=== PATIENT | male | born 1940 | race Caucasian/White ===

== ENCOUNTER 2017-11-04 16:26 | Observation (INO) | payer MEDICARE, SELFPAY ==
[2017-11-04] VITALS (8 sets, daily range): BP systolic 124–206; BP diastolic 62–77; PULSE 68–94; RESP 15–22; TEMP 36.7–37.2; O2SAT 91–98; BMI 33.7; BMI 36.2; BMI 36.3
--- NOTE | 2017-11-04 16:42 | EKG12_ITS ---
Test Reason : COUGH Blood Pressure : / mmHG Vent. Rate : 093 BPM Atrial Rate : 093 BPM P-R Int : 156 ms QRS Dur : 124 ms QT Int : 378 ms P-R-T Axes : 047 -26 100 degrees QTc Int : 469 ms Normal sinus rhythm Left ventricular hypertrophy with QRS widening and repolarization abnormality Abnormal ECG Confirmed by ANU WINSTON, ABDULAZIZ ([id number]), magazine editor MAEVE SHAY ([id number]) on 11/08/2017 2:51:27 PM Referred By: ASHLEY Confirmed By:ABDULAZIZ BRENNAN MD
--- NOTE | 2017-11-04 16:45 | RAD_ITS ---
STUDY: X-RAY CHEST REASON FOR EXAM: Male, 77 years old. Cough for 3 months TECHNIQUE: AP portable COMPARISON: October 14, 2016 FINDINGS: There are bilateral perihilar interstitial infiltrates or pulmonary edema.. There is no demonstrated pleural abnormality. Heart is enlarged.. Normal mediastinum and sarath. Normal visualized pulmonary arteries. Mildly calcified aortic arch and descending thoracic aorta. Normal visualized thoracic spine. Normal visualized ribs, clavicles, and shoulders. There is no demonstrated abnormality of the visualized soft tissue structures of the upper abdomen. RAD/Chest 1 View (Portable) IMPRESSION: Probable congestive failure. Cannot exclude inflammatory disease. Electronically Signed: Corky Rosen MD at 17:49 EDT , Service support ,
--- NOTE | 2017-11-04 16:59 | ED.DCSUM_ITS ---
- ER Visit Summary Date of Service: 11/04/17 Chief Complaint: [] 3 month history of cough end-stage renal disease dialysis Wednesday History of Present Illness: Very poor historian, the patient is a 77 M [] history of end-stage renal disease on dialysis Wednesday cycle completed normal dialysis session 4 hours on Wednesday he has had a 3 month history of a dry nonproductive cough, he is on home O2 as needed as needed 2 L he has been using her last few months. He indicates his weight has not changed , he has had no fever no obvious rhinorrhea he is eating and drink without difficulty, he makes about a cupful of urine a day that has not changed his bowel habits have been normal he has no history of SC PE or DVT that he can recall Indicates he has not seen any of his physicians for the cough he has not notified the dialysis staff that he has been coughing he cannot really explain why he came to the emergency department today given his symptoms have been gone for 3 months he is a very poor historian Physical Examination: [] A dry cough here in the emergency department he speaking full sentences his vital signs are within normal range his HEENT exam is unremarkable the neck is supple the lungs are diminished heart tones are distant the abdomen obese but soft nontender he has chronic 3+ edema to his lower extremities neurologically is awake alert moving all 4 extremities Test Results: [] Emergency Department Course and Treatment: [] Chest x-ray shows signs of congestive failure of the EKG shows nonspecific changes nothing acute screening labs are obtained, his white count 14 and the raining labs are unremarkable see those reports is managed with IV Lasix he has had these symptoms for 3 months there is no definitive finding to suggest pneumonia he indicates he is not gaining weight recently has been having his dialysis but his symptoms being on 4 months there is findings to suggest congestive failure given all the above and the fact he will require more definitive management symptoms for 3 months and his age I have asked the hospital seen for further management he was given IV Lasix Treatment Plan: [] Disposition: [] Admit stable Impression: [] Dyspnea, congestive heart failure, new onset, history of end- stage renal disease This note was generated with Viewpoint Digital[employer] software. It may contain incorrect words, spelling, and punctuation that were not noted in review of the chart prior to signing ED Disposition - Plan for ED Patient: Chief Complaint: Cough Referrals: Nolan Martinez MD [Primary Care Provider] -
[2017-11-04 17:18] LABS: Absolute Lymphocyte Count 1.14 X10^3/ul (0.83-4.51); Absolute Neutrophil Count 10.2 X10^3/uL (2.0-7.7); Basophil# 0.06 X10^3/uL; Basophil% 0.4 % (0-1); Eosinophil# 1.62 X10^3/uL; Eosinophils% 11.7 % (0-5); Hematocrit 28.2 % (40-54); Hemoglobin 8.6 g/dl (13.0-16.5); Lymphocyte # 1.14 X10^3/ul (4.0); Lymphocyte % 8.2 % (19-41); Mean Corp Hgb Conc 30.5 g/gl (32-36); Mean Corpuscular Hgb 26.2 pg (27.0-32.0); Mean Platelet Vol. 8.7 fl (6.2-12.0); Monocyte# 0.78 X10^3/uL; Monocyte% 5.6 % (0-10); Neutrophil # 10.23 X10^3/uL (2.7-7.7); Neutrophil % 73.9 % (47-70); Platelet Count 277 K/mm3 (150-450); RBC Distribution Width CV 14.3 % (11.6-14.6); RBC Distribution Width SD 45.1 fl (35.1-43.9); Red Blood Count 3.28 M/mm3 (4.6-6.2); White Blood Count 13.9 K/mm3 (4.4-11.0)
[2017-11-04] MEDS: Ipratropium/Albuterol Sulfate 3 ML AMPUL.NEB INHALATION (17:22)
[2017-11-04 17:46] LABS: BNP,B-Type NATRIURETIC PEPTIDE 583.2 pg/mL (0-100)
[2017-11-04 17:52] LABS: POSITIVE COUNT NO; POSITIVE DIFFERENTIAL NO; POSITIVE MORPHOLOGY NO
[2017-11-04 17:54] LABS: Anion Gap 9 (5-15); BUN 46 mg/dL (7-18); BUN/Creat Ratio 7.5 RATIO (10-20); Calcium,Total 8.7 mg/dL (8.5-10.1); Chloride 95 mmol/L (98-107); Creatinine, Serum 6.13 mg/dL (0.70-1.30); EST Glomerular Filtration Rate 10 mL/min (>60); Est Glom Filt Rate - Afr Amer 11 mL/min (>60); Estimated Creatinine Clearance 10.25 ml/min; Glucose 252 mg/dL (74-106); Potassium 4.6 mmol/L (3.5-5.1); Sodium Level 134 mmol/L (136-145)
[2017-11-04] MEDS: Furosemide 40 MG/4 ML Vial IV (18:35)
--- NOTE | 2017-11-04 20:11 | ECHOD_ITS ---
Reason For Study: CHF Procedure This was a 2D Doppler, Color Flow transthoracic echocardiogram. The exam was of fair technical quality due to body habitus. Exam performed portable in patient room. Left Ventricle Normal LV size. Moderate concentric left ventricular hypertrophy. Left ventricular systolic function is normal. The estimated ejection fraction is 65 %. Transmitral diastolic flow velocities suggest moderate (stage 2) diastolic dysfunction (pseudonormal pattern). No regional wall motion abnormalities noted. Right Ventricle Normal RV size. Normal systolic function. Atria The left atrium is mildly enlarged. Normal right atrium. No doppler evidence for ASD. Mitral Valve There is no mitral annular calcification. Normal mitral valve. Mild (1+) mitral valve insufficiency. Tricuspid Valve Normal tricuspid valve. Mild tricuspid valve insufficiency. Right ventricular systolic pressure estimated to be 48 mmHg. Aortic Valve Trisinus/trileaflet aortic valve. Normal aortic valve. Pulmonic Valve The pulmonic valve is not well visualized. Trivial pulmonic valve insufficiency. Great Vessels Normal sized aortic root. Pericardium/Pleural No pericardial effusion. MMode/2D Measurements & Calculations LVIDd: 5.0 cm IVSd: 1.5 cm Ao root diam: 2.9 cm LVIDs: 3.3 cm LVPWd: 1.5 cm LA dimension: 5.5 cm RVDd: 3.0 cm FS: 33.7 % LAV(MOD-bp): 62.2 ml LA A4 area: 20.6 cm2 RA A4 area: 18.3 cm2 LAV(MOD-bp) Indexed: 27.0 ml/m2 LAV(MOD-sp2): 59.4 ml LAV(MOD-sp4): 59.1 ml Time Measurements MV dec time: 0.10 sec Doppler Measurements & Calculations MV E max cb: 138.8 cm/sec Lat Peak E' Cb: 7.9 cm/sec Med Peak E' Cb: 7.6 cm/sec MV A max cb: 105.4 cm/sec E/E' lat: 17.5 E/E' med: 18.4 MV E/A: 1.3 MV V2 max: 143.4 cm/sec MV P1/2t max cb: 141.9 cm/sec Ao V2 max: 191.3 cm/sec MV max P.2 mmHg MV P1/2t: 81.1 msec Ao max P.6 mmHg MV V2 mean: 92.3 cm/sec MV dec slope: 512.5 cm/sec2 Ao V2 mean: 143.4 cm/sec MV mean P.7 mmHg MVA(P1/2t): 2.7 cm2 Ao mean P.9 mmHg MV V2 VTI: 36.5 cm Ao V2 VTI: 42.8 cm LV V1 max: 136.1 cm/sec PA V2 max: 159.2 cm/sec TR max cb: 335.6 cm/sec LV V1 max P.4 mmHg TR max P.1 mmHg Interpretation Summary Left ventricular systolic function is normal. The estimated ejection fraction is 65 %. Moderate concentric left ventricular hypertrophy. The left atrium is mildly enlarged. Mild (1+) mitral valve insufficiency. Mild tricuspid valve insufficiency. Trivial pulmonic valve insufficiency. Right ventricular systolic pressure estimated to be 48 mmHg. Transmitral diastolic flow velocities suggest diastolic dysfunction. Ordering Physician: Mara Mckay Referring Physician: Nolan Martinez Performed By: Jessie Duarte RDCS, RVT
--- NOTE | 2017-11-04 20:13 | PCM.HP.STD ---
Problem List (1) Diabetic neuropathy Status: Chronic (2) Secondary hyperparathyroidism Status: Chronic (3) Peripheral vascular disease Status: Chronic (4) Acute on chronic renal failure Status: Chronic (5) Hyperlipidemia Status: Chronic (6) Hypertension Status: Chronic History of Present Illness Date of Admission: 11/04/17 Chief Complaint: Cough for 3 months duration. The patient is a 77 year old M with past medical history of diabetes with neuropathy, diastolic heart failure, end-stage renal disease on hemodialysis, medical noncompliance, presented to the emergency room due non productive cough for about 3 months which is getting worse. He is demanding answers for his cough. He denies any fever, chills, hemoptysis, nausea vomiting or diarrhea. His chest x-ray in the emergency room revealed probable congestive failure. Past Medical History Past Medical History (Chronic Problems): Chronic Problems Diabetic neuropathy (Chronic) Secondary hyperparathyroidism (Chronic) Non-healing wound of lower extremity (Chronic) Peripheral vascular disease (Chronic) Acute on chronic renal failure (Chronic) Hyperlipidemia (Chronic) Hypertension (Chronic) Type 2 diabetes mellitus (Chronic) Cerebral venous sinus thrombosis (Chronic) Questionable history, possible stent in my head CKD (chronic kidney disease) stage 4, GFR 15-29 ml/min (Chronic) Anemia in chronic kidney disease (Chronic) Noncompliance with treatment plan (Chronic) Personality disorder (Chronic) Allergies labetalol [Labetalol] Adverse Reaction (Verified 03/31/17 14:09) Other Home Medications: Ambulatory Orders Medication Instructions Recorded Amlodipine [Norvasc] 10 mg PO DAILY 11/04/17 Aspirin [Aspirin, Baby] 81 mg PO QHS 11/04/17 Collagenase [Santyl] 1 applicatio TOPICAL QODAY 11/04/17 Furosemide [Lasix] 80 mg PO BID 11/04/17 Insulin Lispro [Humalog KwikPen] 15 unit SQ 4X/DAY 11/04/17 Metolazone [Zaroxolyn] 10 mg PO BID 11/04/17 Omeprazole [Omeprazole] 20 mg PO DAILY 11/04/17 Pregabalin [Lyrica] 50 mg PO BID 11/04/17 Surgical History: appendectomy, cholecystectomy Psychiatric History: No pertinent psych hx Smoking Status: Former smoker - *Family History Maternal History Items: Diabetes, No pertinent history Paternal History Items: No pertinent history Review of Systems Constitutional: Reports: Chills, Fever Comment: All Systems were reviewed with pertinent positives mentioned in the HPI above. VTE Information - Inpt Only VTE Present on Admission: No VTE Mechan Device Prophylaxis: SCD's VTE Pharm Prophylaxis ordered?: No - Physical Exam General: Alert, Oriented x3 HEENT: Atraumatic Oral: Moist Mucosa Neck: Supple, No JVD Lungs: Clear to auscultation, No wheeze, No rales Cardiovascular: Regular rate, Normal S1, Normal S2 Abdomen: Bowel Sounds Present, Soft, Non Tender Extremities: No clubbing Neurological: Cranial nerves II-XII grossly intact Psych/Mental Status: Normal Affect Vital Signs Temp Pulse Resp BP Pulse Ox 98.1 F 92 20 H 182/76 H 95 11/04/17 19:35 11/04/17 19:44 11/04/17 19:35 11/04/17 19:35 11/04/17 19:35 Oxygen Flow Rate (L/min) 2 Oxygen Delivery Method Nasal Cannula Weight: 114.6 kg Body Mass Index (BMI) 36.2 Assessment/Plan 1. Acute on chronic diastolic heart failure; the patient is still oral Lasix and make some urine, transition to IV Lasix. 2. 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 The patient tells me he would refuse dialysis tomorrow. 3. Acute bronchitis; I will place him on p.o. doxycycline and prednisone. He is on bronchodilators. 4. Chronic respiratory failure hypoxia on supplemental oxygen at 2 L/min. 5. DVT prophylaxis with subcutaneous heparin. Code Visit Inpatient E&M: 78100 Init Hosp L2
--- NOTE | 2017-11-04 20:16 | HP.PCM_ITS ---
Problem List (1) Diabetic neuropathy Status: Chronic (2) Secondary hyperparathyroidism Status: Chronic (3) Peripheral vascular disease Status: Chronic (4) Acute on chronic renal failure Status: Chronic (5) Hyperlipidemia Status: Chronic (6) Hypertension Status: Chronic History of Present Illness Date of Admission: 11/04/17 Chief Complaint: Cough for 3 months duration. The patient is a 77 year old M with past medical history of diabetes with neuropathy, diastolic heart failure, end-stage renal disease on hemodialysis, medical noncompliance, presented to the emergency room due non productive cough for about 3 months which is getting worse. He is demanding answers for his cough. He denies any fever, chills, hemoptysis, nausea vomiting or diarrhea. His chest x-ray in the emergency room revealed probable congestive failure. Past Medical History Past Medical History (Chronic Problems): Chronic Problems Diabetic neuropathy (Chronic) Secondary hyperparathyroidism (Chronic) Non-healing wound of lower extremity (Chronic) Peripheral vascular disease (Chronic) Acute on chronic renal failure (Chronic) Hyperlipidemia (Chronic) Hypertension (Chronic) Type 2 diabetes mellitus (Chronic) Cerebral venous sinus thrombosis (Chronic) Questionable history, possible stent in my head CKD (chronic kidney disease) stage 4, GFR 15-29 ml/min (Chronic) Anemia in chronic kidney disease (Chronic) Noncompliance with treatment plan (Chronic) Personality disorder (Chronic) Allergies labetalol [Labetalol] Adverse Reaction (Verified 03/31/17 14:09) Other Home Medications: Ambulatory Orders Medication Instructions Recorded Amlodipine [Norvasc] 10 mg PO DAILY 11/04/17 Aspirin [Aspirin, Baby] 81 mg PO QHS 11/04/17 Collagenase [Santyl] 1 applicatio TOPICAL QODAY 11/04/17 Furosemide [Lasix] 80 mg PO BID 11/04/17 Insulin Lispro [Humalog KwikPen] 15 unit SQ 4X/DAY 11/04/17 Metolazone [Zaroxolyn] 10 mg PO BID 11/04/17 Omeprazole [Omeprazole] 20 mg PO DAILY 11/04/17 Pregabalin [Lyrica] 50 mg PO BID 11/04/17 Surgical History: appendectomy, cholecystectomy Psychiatric History: No pertinent psych hx Smoking Status: Former smoker - *Family History Maternal History Items: Diabetes, No pertinent history Paternal History Items: No pertinent history Review of Systems Constitutional: Reports: Chills, Fever Comment: All Systems were reviewed with pertinent positives mentioned in the HPI above. VTE Information - Inpt Only VTE Present on Admission: No VTE Mechan Device Prophylaxis: SCD's VTE Pharm Prophylaxis ordered?: No - Physical Exam General: Alert, Oriented x3 HEENT: Atraumatic Oral: Moist Mucosa Neck: Supple, No JVD Lungs: Clear to auscultation, No wheeze, No rales Cardiovascular: Regular rate, Normal S1, Normal S2 Abdomen: Bowel Sounds Present, Soft, Non Tender Extremities: No clubbing Neurological: Cranial nerves II-XII grossly intact Psych/Mental Status: Normal Affect Vital Signs Temp Pulse Resp BP Pulse Ox 98.1 F 92 20 H 182/76 H 95 11/04/17 19:35 11/04/17 19:44 11/04/17 19:35 11/04/17 19:35 11/04/17 19:35 Oxygen Flow Rate (L/min) 2 Oxygen Delivery Method Nasal Cannula Weight: 114.6 kg Body Mass Index (BMI) 36.2 Assessment/Plan 1. Acute on chronic diastolic heart failure; the patient is still oral Lasix and make some urine, transition to IV Lasix. 2. 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 The patient tells me he would refuse dialysis tomorrow. 3. Acute bronchitis; I will place him on p.o. doxycycline and prednisone. He is on bronchodilators. 4. Chronic respiratory failure hypoxia on supplemental oxygen at 2 L/min. 5. DVT prophylaxis with subcutaneous heparin. Code Visit Inpatient E&M: 11967 Init Hosp L2
[2017-11-04] MEDS: Aspirin 81 MG TAB.CHEW PO (22:21)
[2017-11-04] MEDS: Doxycycline 100 MG CAPSULE PO (22:21)
[2017-11-04] MEDS: Pregabalin 50 MG Capsule PO (22:21)
[2017-11-04 22:30] LABS: Bedside Glucose 290 mg/dL (70-110)
[2017-11-04] MEDS: guaiFENesin 10 ML UDC (200MG/10ML) PO (22:34)
[2017-11-04 22:52] LABS: Thyroid Stim Hormone (TSH) 1.24 uIU/mL (0.358-3.74)
[2017-11-05] VITALS (12 sets, daily range): BP systolic 159–197; BP diastolic 68–90; PULSE 76–88; RESP 16–20; TEMP 36.8–37; O2SAT 92–97
[2017-11-05] MEDS: amLODIPine 5 MG Tablet PO (00:06)
[2017-11-05] MEDS: Lisinopril 40 MG Tablet PO (00:06)
[2017-11-05] MEDS: guaiFENesin 10 ML UDC (200MG/10ML) PO (06:26)
[2017-11-05 06:55] LABS: Bedside Glucose 273 mg/dL (70-110)
[2017-11-05 07:37] LABS: Absolute Lymphocyte Count 1.02 X10^3/ul (0.83-4.51); Absolute Neutrophil Count 9.3 X10^3/uL (2.0-7.7); Basophil# 0.07 X10^3/uL; Basophil% 0.6 % (0-1); Eosinophil# 1.44 X10^3/uL; Eosinophils% 11.4 % (0-5); Hematocrit 25.6 % (40-54); Hemoglobin 7.9 g/dl (13.0-16.5); Lymphocyte # 1.02 X10^3/ul (4.0); Lymphocyte % 8.1 % (19-41); Mean Corp Hgb Conc 30.9 g/gl (32-36); Mean Corpuscular Hgb 27.1 pg (27.0-32.0); Mean Corpuscular Volume 87.7 fL (80-94); Mean Platelet Vol. 9.2 fl (6.2-12.0); Monocyte# 0.76 X10^3/uL; Neutrophil # 9.32 X10^3/uL (2.7-7.7); Neutrophil % 73.7 % (47-70); Platelet Count 289 K/mm3 (150-450); RBC Distribution Width CV 14.1 % (11.6-14.6); Red Blood Count 2.92 M/mm3 (4.6-6.2); White Blood Count 12.6 K/mm3 (4.4-11.0)
[2017-11-05 07:42] LABS: POSITIVE COUNT NO; POSITIVE DIFFERENTIAL NO; POSITIVE MORPHOLOGY NO
[2017-11-05 07:49] LABS: Anion Gap 10 (5-15); BUN 46 mg/dL (7-18); BUN/Creat Ratio 7.3 RATIO (10-20); Calcium,Total 8.6 mg/dL (8.5-10.1); Chloride 97 mmol/L (98-107); Creatinine, Serum 6.33 mg/dL (0.70-1.30); EST Glomerular Filtration Rate 9 mL/min (>60); Est Glom Filt Rate - Afr Amer 11 mL/min (>60); Estimated Creatinine Clearance 9.93 ml/min; Glucose 268 mg/dL (74-106); Potassium 4.1 mmol/L (3.5-5.1); Sodium Level 136 mmol/L (136-145)
[2017-11-05] MEDS: predniSONE 20 MG Tablet 40 MG PO (08:28)
[2017-11-05] MEDS: Albuterol 2.5 MG/3 ML VIAL.NEB. INHALATION (09:58)
[2017-11-05] MEDS: Doxycycline 100 MG CAPSULE PO ×2 (10:12→21:52)
[2017-11-05] MEDS: Pantoprazole Sodium 20 MG Tablet PO (10:12)
[2017-11-05] MEDS: metOLazone 5 MG Tablet 10 MG PO ×2 (10:13→21:52)
[2017-11-05] MEDS: 0.9% NaCl Peripheral Flush Adult/Peds IV (10:13)
[2017-11-05] MEDS: amLODIPine 10 MG Tablet PO (10:13)
[2017-11-05] MEDS: Furosemide 40 MG/4 ML Vial IV ×2 (10:13→21:52)
[2017-11-05] MEDS: Pregabalin 50 MG Capsule PO ×2 (10:17→21:56)
--- NOTE | 2017-11-05 11:01 | PCM.CONS.R ---
Problem List (1) ESRD (end stage renal disease) on dialysis Status: Chronic Consultation - Renal PCP/ Referring MD: Requesting physician: [] Primary care physician: Nolan Martinez - History of Present Illness History of Present Illness: The patient is a 77 year old M ESRD on MWF ( Patient refuses to have HD session on Wednesday . He just go twice weekly . HD center is [facility] [place] ) Patient presented with progressive SOB . Pt was found to have CHF. Renal team was consulted for HD Feeling slightly better today. On NC 2.5 L ROS: 12 systems review is negative except SOB ] - Allergies Allergies: Allergies labetalol [Labetalol] Adverse Reaction (Verified 03/31/17 14:09) Other - Current Medications Current Medications: Current Medications Albuterol Sulfate (Ventolin Aerosols) 2.5 mg INHALATION Q2H PRN PRN PRN Reason: SOB &/OR WHEEZING Last Admin: 11/05/17 09:58 Dose: 2.5 mg Amlodipine Besylate (Norvasc) 10 mg PO DAILY [facility] Last Admin: 11/05/17 10:13 Dose: 10 mg Aspirin (Aspirin, Baby) 81 mg PO QHS [facility] Last Admin: 11/04/17 22:21 Dose: 81 mg Dextrose (D50w Syringe) 0 gm IV X1 PRN; Protocol PRN Reason: Hypoglycemia Doxycycline Monohydrate (Doxycycline) 100 mg PO BID [facility] Last Admin: 11/05/17 10:12 Dose: 100 mg Furosemide (Lasix) 40 mg IV BID@1000,1800 [facility] Last Admin: 11/05/17 10:13 Dose: 40 mg Glucagon () 1 mg IM .X1 PRN PRN Reason: Hypoglycemia Guaifenesin (Robitussin) 10 ml PO Q4H PRN PRN PRN Reason: COUGH/CONGESTION Last Admin: 11/05/17 06:26 Dose: 10 ml Sodium Chloride () 250 mls @ 15 mls/hr IV .[id number] PRN PRN Reason: SALINE FLUSH Insulin Aspart (Novolog Flexpen (Bkc)) 15 units SC 0800,1200,1700,2200 [facility] Last Admin: 11/05/17 08:28 Dose: 15 units Metolazone (Zaroxolyn) 10 mg PO BIDLX [facility] Last Admin: 11/05/17 10:13 Dose: 10 mg Nutritional Formula (Lactose Free) (Glucerna Shake) 120 ml PO TIDCM [facility] Last Admin: 11/05/17 08:19 Dose: Not Given Pantoprazole Sodium (Protonix) 20 mg PO DAILY [facility] Last Admin: 11/05/17 10:12 Dose: 20 mg Prednisone () 40 mg PO DAILY@0800 [facility] Last Admin: 11/05/17 08:28 Dose: 40 mg Pregabalin (Lyrica) 50 mg PO BID [facility] Last Admin: 11/05/17 10:17 Dose: 50 mg Sodium Chloride () 5 - 30 ml IV UD PRN PRN Reason: SALINE FLUSH Last Admin: 11/05/17 10:13 Dose: 20 ml - Past Medical History Past Medical History (Chronic Problems): Chronic Problems ESRD (end stage renal disease) on dialysis (Chronic) Diabetic neuropathy (Chronic) Secondary hyperparathyroidism (Chronic) Non-healing wound of lower extremity (Chronic) Peripheral vascular disease (Chronic) Acute on chronic renal failure (Chronic) Hyperlipidemia (Chronic) Hypertension (Chronic) Type 2 diabetes mellitus (Chronic) Cerebral venous sinus thrombosis (Chronic) Questionable history, possible stent in my head CKD (chronic kidney disease) stage 4, GFR 15-29 ml/min (Chronic) Anemia in chronic kidney disease (Chronic) Noncompliance with treatment plan (Chronic) Personality disorder (Chronic) - Past Surgical History Surgical History: appendectomy, cholecystectomy - Social History Smoking Status: Former smoker - Family History Maternal History Items: Diabetes, No pertinent history Paternal History Items: No pertinent history - Physical Exam General: Alert, Oriented x3 HEENT: Atraumatic Oral: Moist Mucosa Neck: Supple, No JVD Lungs: Diminished, Rales Cardiovascular: Regular rate, Regular Rhythm, Normal S1, Normal S2 Abdomen: Bowel Sounds Present, Soft, Non Tender Extremities: No clubbing, No edema Skin: No rashes Musculoskeletal: No Tenderness to Palpation of Joints or Extremities Lymphatic: No Cervical, Supraclavicular, or Inguinal Adenopathy Neurological: Cranial nerves II-XII grossly intact Psych/Mental Status: Normal Affect Vital Signs Temp Pulse Resp BP Pulse Ox 98.5 F 83 18 197/68 H 93 11/05/17 10:09 11/05/17 10:50 11/05/17 10:50 11/05/17 10:09 11/05/17 10:09 Oxygen Flow Rate (L/min) 2.5 Oxygen Delivery Method Nasal Cannula Weight: 113 kg Body Mass Index (BMI) 36.2 Intake and Output for Last 24 Hours 11/03/17 11/04/17 11/05/17 23:59 23:59 23:59 Intake Total 222 / 222 Balance 222 / 222 Laboratory Tests Past 24 Hrs 11/04/17 11/04/17 11/05/17 21:45 21:45 00:15 WBC RBC Hgb Hct MCV MCH MCHC RDW RDW Differential Plt Count MPV Immature Gran % (Auto) Neut % (Auto) Lymph % (Auto) [place] % (Auto) Eos % (Auto) Baso % (Auto) Absolute Neuts (auto) Absolute Lymphs (auto) Total Counted Sodium Potassium Chloride Carbon Dioxide Anion Gap BUN Creatinine Estim Creat Clear Calc Est GFR (MDRD) Af Amer Est GFR (MDRD) Non-Af BUN/Creatinine Ratio Glucose Calcium Troponin I < 0.02 0.04 TSH 1.24 11/05/17 11/05/17 11/05/17 07:00 07:00 07:00 WBC 12.6 H RBC 2.92 L Hgb 7.9 L Hct 25.6 L MCV 87.7 MCH 27.1 MCHC 30.9 L RDW 14.1 RDW Differential 43.0 Plt Count 289 MPV 9.2 Immature Gran % (Auto) 0.200 Neut % (Auto) 73.7 H Lymph % (Auto) 8.1 L [place] % (Auto) 6.0 Eos % (Auto) 11.4 H Baso % (Auto) 0.6 Absolute Neuts (auto) 9.3 H Absolute Lymphs (auto) 1.02 Total Counted Not Reportable Sodium 136 Cancelled Potassium 4.1 Cancelled Chloride 97 L Cancelled Carbon Dioxide 29.0 Cancelled Anion Gap 10 Cancelled BUN 46 H Cancelled Creatinine 6.33 H Cancelled Estim Creat Clear Calc 9.93 Cancelled Est GFR (MDRD) Af Amer 11 L Cancelled Est GFR (MDRD) Non-Af 9 L Cancelled BUN/Creatinine Ratio 7.3 L Cancelled Glucose 268 H Cancelled Calcium 8.6 Cancelled Troponin I 0.04 TSH POC Glucose 11/05/17 11/04/17 06:46 22:26 POC Glucose 273 H 290 H Assessment/Plan 1- ESRD on MWF ( Patient refuses 3 days weekly HD . He just has HD session on MF) Will do HD session today with UF goal 3L. HD access LUE AVF with + T and B 2- HTN: BP is elevated. will monitor after HD. if remains high might add hydralazine 3- Acute on chronic RF due to CHF HD today with UF goal 3L Will continue to follow Dominick Whelan MD
--- NOTE | 2017-11-05 11:07 | CON.PCM_ITS ---
Problem List (1) ESRD (end stage renal disease) on dialysis Status: Chronic Consultation - Renal PCP/ Referring MD: Requesting physician: [] Primary care physician: Nolan Martinez - History of Present Illness History of Present Illness: The patient is a 77 year old M ESRD on MWF ( Patient refuses to have HD session on Wednesday . He just go twice weekly . HD center is [facility] ) Patient presented with progressive SOB . Pt was found to have CHF. Renal team was consulted for HD Feeling slightly better today. On NC 2.5 L ROS: 12 systems review is negative except SOB ] - Allergies Allergies: Allergies labetalol [Labetalol] Adverse Reaction (Verified 03/31/17 14:09) Other - Current Medications Current Medications: Current Medications Albuterol Sulfate (Ventolin Aerosols) 2.5 mg INHALATION Q2H PRN PRN PRN Reason: SOB &/OR WHEEZING Last Admin: 11/05/17 09:58 Dose: 2.5 mg Amlodipine Besylate (Norvasc) 10 mg PO DAILY [facility] Last Admin: 11/05/17 10:13 Dose: 10 mg Aspirin (Aspirin, Baby) 81 mg PO QHS [facility] Last Admin: 11/04/17 22:21 Dose: 81 mg Dextrose (D50w Syringe) 0 gm IV X1 PRN; Protocol PRN Reason: Hypoglycemia Doxycycline Monohydrate (Doxycycline) 100 mg PO BID [facility] Last Admin: 11/05/17 10:12 Dose: 100 mg Furosemide (Lasix) 40 mg IV BID@1000,1800 [facility] Last Admin: 11/05/17 10:13 Dose: 40 mg Glucagon () 1 mg IM .X1 PRN PRN Reason: Hypoglycemia Guaifenesin (Robitussin) 10 ml PO Q4H PRN PRN PRN Reason: COUGH/CONGESTION Last Admin: 11/05/17 06:26 Dose: 10 ml Sodium Chloride () 250 mls @ 15 mls/hr IV .[id number] PRN PRN Reason: SALINE FLUSH Insulin Aspart (Novolog Flexpen (Bkc)) 15 units SC 0800,1200,1700,2200 [facility] Last Admin: 11/05/17 08:28 Dose: 15 units Metolazone (Zaroxolyn) 10 mg PO BIDLX [facility] Last Admin: 11/05/17 10:13 Dose: 10 mg Nutritional Formula (Lactose Free) (Glucerna Shake) 120 ml PO TIDCM [facility] Last Admin: 11/05/17 08:19 Dose: Not Given Pantoprazole Sodium (Protonix) 20 mg PO DAILY [facility] Last Admin: 11/05/17 10:12 Dose: 20 mg Prednisone () 40 mg PO DAILY@0800 [facility] Last Admin: 11/05/17 08:28 Dose: 40 mg Pregabalin (Lyrica) 50 mg PO BID [facility] Last Admin: 11/05/17 10:17 Dose: 50 mg Sodium Chloride () 5 - 30 ml IV UD PRN PRN Reason: SALINE FLUSH Last Admin: 11/05/17 10:13 Dose: 20 ml - Past Medical History Past Medical History (Chronic Problems): Chronic Problems ESRD (end stage renal disease) on dialysis (Chronic) Diabetic neuropathy (Chronic) Secondary hyperparathyroidism (Chronic) Non-healing wound of lower extremity (Chronic) Peripheral vascular disease (Chronic) Acute on chronic renal failure (Chronic) Hyperlipidemia (Chronic) Hypertension (Chronic) Type 2 diabetes mellitus (Chronic) Cerebral venous sinus thrombosis (Chronic) Questionable history, possible stent in my head CKD (chronic kidney disease) stage 4, GFR 15-29 ml/min (Chronic) Anemia in chronic kidney disease (Chronic) Noncompliance with treatment plan (Chronic) Personality disorder (Chronic) - Past Surgical History Surgical History: appendectomy, cholecystectomy - Social History Smoking Status: Former smoker - Family History Maternal History Items: Diabetes, No pertinent history Paternal History Items: No pertinent history - Physical Exam General: Alert, Oriented x3 HEENT: Atraumatic Oral: Moist Mucosa Neck: Supple, No JVD Lungs: Diminished, Rales Cardiovascular: Regular rate, Regular Rhythm, Normal S1, Normal S2 Abdomen: Bowel Sounds Present, Soft, Non Tender Extremities: No clubbing, No edema Skin: No rashes Musculoskeletal: No Tenderness to Palpation of Joints or Extremities Lymphatic: No Cervical, Supraclavicular, or Inguinal Adenopathy Neurological: Cranial nerves II-XII grossly intact Psych/Mental Status: Normal Affect Vital Signs Temp Pulse Resp BP Pulse Ox 98.5 F 83 18 197/68 H 93 11/05/17 10:09 11/05/17 10:50 11/05/17 10:50 11/05/17 10:09 11/05/17 10:09 Oxygen Flow Rate (L/min) 2.5 Oxygen Delivery Method Nasal Cannula Weight: 113 kg Body Mass Index (BMI) 36.2 Intake and Output for Last 24 Hours 11/03/17 11/04/17 11/05/17 23:59 23:59 23:59 Intake Total 222 / 222 Balance 222 / 222 Laboratory Tests Past 24 Hrs 11/04/17 11/04/17 11/05/17 21:45 21:45 00:15 WBC RBC Hgb Hct MCV MCH MCHC RDW RDW Differential Plt Count MPV Immature Gran % (Auto) Neut % (Auto) Lymph % (Auto) [place] % (Auto) Eos % (Auto) Baso % (Auto) Absolute Neuts (auto) Absolute Lymphs (auto) Total Counted Sodium Potassium Chloride Carbon Dioxide Anion Gap BUN Creatinine Estim Creat Clear Calc Est GFR (MDRD) Af Amer Est GFR (MDRD) Non-Af BUN/Creatinine Ratio Glucose Calcium Troponin I < 0.02 0.04 TSH 1.24 11/05/17 11/05/17 11/05/17 07:00 07:00 07:00 WBC 12.6 H RBC 2.92 L Hgb 7.9 L Hct 25.6 L MCV 87.7 MCH 27.1 MCHC 30.9 L RDW 14.1 RDW Differential 43.0 Plt Count 289 MPV 9.2 Immature Gran % (Auto) 0.200 Neut % (Auto) 73.7 H Lymph % (Auto) 8.1 L [place] % (Auto) 6.0 Eos % (Auto) 11.4 H Baso % (Auto) 0.6 Absolute Neuts (auto) 9.3 H Absolute Lymphs (auto) 1.02 Total Counted Not Reportable Sodium 136 Cancelled Potassium 4.1 Cancelled Chloride 97 L Cancelled Carbon Dioxide 29.0 Cancelled Anion Gap 10 Cancelled BUN 46 H Cancelled Creatinine 6.33 H Cancelled Estim Creat Clear Calc 9.93 Cancelled Est GFR (MDRD) Af Amer 11 L Cancelled Est GFR (MDRD) Non-Af 9 L Cancelled BUN/Creatinine Ratio 7.3 L Cancelled Glucose 268 H Cancelled Calcium 8.6 Cancelled Troponin I 0.04 TSH POC Glucose 11/05/17 11/04/17 06:46 22:26 POC Glucose 273 H 290 H Assessment/Plan 1- ESRD on MWF ( Patient refuses 3 days weekly HD . He just has HD session on MF ) Will do HD session today with UF goal 3L. HD access LUE AVF with + T and B 2- HTN: BP is elevated. will monitor after HD. if remains high might add hydralazine 3- Acute on chronic RF due to CHF HD today with UF goal 3L Will continue to follow Dominick Whelan MD
--- NOTE | 2017-11-05 11:44 | CASEMGMT ---
JOSE MANUEL reviewed chart and noted from past admission that patient is on Passport. JOSE MANUEL called [facility] and spoke with Lyssa on the coverage line. Patient's Care Manger is Angie Alcazar. He has a medical alert button through [employer], he gets 6 hours of personal care a week through [facility], he also gets 1 hour of prison a week for wound care from [facility], and he gets 7 meals a week from [employer]. Jose C TORRES said patient may be interested in Hospice. He has a relative that is a catastrophe claims supervisor at Hospice and he may talk with her. MELISSA also said patient appears to be having some spiritual struggles as evidenced by his talking about after life and what to expect. SW did call the vascular technician and left him a message. SW will speak with patient about Hospice. Emilie RODRIGUEZ MSW
[2017-11-05] MEDS: Glucerna Shake 120 ML LIQUID PO ×2 (11:47→16:10)
--- NOTE | 2017-11-05 15:23 | PCM.PROGNOTE ---
Subjective: Pt was very agitated this AM, and was very upset, refusing dialysis again. He refused dialysis last night. He does make some urine still. I sat and discussed his prognosis with him if he continued to refuse dialysis, namely with it being very poor, with probably worsening anemia, and possible respiratory failure. He does state that in the event of cardiac arrest he does not want intubated or CPR. The patient refuses to consider dialysis on Wednesdays. He also states that he does not want to do dialysis anymore at all, but that he is scared that there may not be an afterlife, if there is not one, then he wants to live, but if there is as afterlife then he wants to because his life is suffering. He states that he is considering hospice. His daughter in law is a slab conditioner supervisor of the [place] [facility] and he would like to discuss it with her. He also plans to discuss this with his brother. He is estranged from his children otherwise. He is SOB and has conversational dyspnea. After much discussion he agrees to have dialysis today. He does wear 2lpm O2 at home chronically. - Physical Exam General: Alert, Oriented x3, Cooperative HEENT: Atraumatic, PERRLA, EOMI, Normocephalic Neck: Supple, No JVD, Negative Carotid Bruits Lungs: Rales, Wheezes, - - conversational dyspnea Cardiovascular: Regular rate, No murmurs Abdomen: Bowel Sounds Present, Soft, Non Tender Extremities: No edema, Capillary Refill Less than 3 Seconds, Edema - BLE edema 2+ equal Skin: No rashes, No breakdown Musculoskeletal: No Tenderness to Palpation of Joints or Extremities Neurological: Cranial nerves II-XII grossly intact Psych/Mental Status: Agitated, Anxious, Alert and oriented to time, place, person, mood and affect Vital Signs Temp Pulse Resp BP Pulse Ox 98.5 F 86 18 197/68 H 93 11/05/17 10:09 11/05/17 15:03 11/05/17 10:50 11/05/17 10:09 11/05/17 10:09 Oxygen Flow Rate (L/min) 2 Oxygen Delivery Method Nasal Cannula Weight: 113 kg Body Mass Index (BMI) 36.2 Intake and Output for Last 24 Hours 11/03/17 11/04/17 11/05/17 23:59 23:59 23:59 Intake Total 702 / 702 Balance 702 / 702 Laboratory Tests Past 24 Hrs 11/04/17 11/04/17 11/05/17 21:45 21:45 00:15 WBC RBC Hgb Hct MCV MCH MCHC RDW RDW Differential Plt Count MPV Immature Gran % (Auto) Neut % (Auto) Lymph % (Auto) [place] % (Auto) Eos % (Auto) Baso % (Auto) Absolute Neuts (auto) Absolute Lymphs (auto) Total Counted Sodium Potassium Chloride Carbon Dioxide Anion Gap BUN Creatinine Estim Creat Clear Calc Est GFR (MDRD) Af Amer Est GFR (MDRD) Non-Af BUN/Creatinine Ratio Glucose Calcium Troponin I < 0.02 0.04 TSH 1.24 11/05/17 11/05/17 11/05/17 07:00 07:00 07:00 WBC 12.6 H RBC 2.92 L Hgb 7.9 L Hct 25.6 L MCV 87.7 MCH 27.1 MCHC 30.9 L RDW 14.1 RDW Differential 43.0 Plt Count 289 MPV 9.2 Immature Gran % (Auto) 0.200 Neut % (Auto) 73.7 H Lymph % (Auto) 8.1 L [place] % (Auto) 6.0 Eos % (Auto) 11.4 H Baso % (Auto) 0.6 Absolute Neuts (auto) 9.3 H Absolute Lymphs (auto) 1.02 Total Counted Not Reportable Sodium 136 Cancelled Potassium 4.1 Cancelled Chloride 97 L Cancelled Carbon Dioxide 29.0 Cancelled Anion Gap 10 Cancelled BUN 46 H Cancelled Creatinine 6.33 H Cancelled Estim Creat Clear Calc 9.93 Cancelled Est GFR (MDRD) Af Amer 11 L Cancelled Est GFR (MDRD) Non-Af 9 L Cancelled BUN/Creatinine Ratio 7.3 L Cancelled Glucose 268 H Cancelled Calcium 8.6 Cancelled Troponin I 0.04 TSH POC Glucose 11/05/17 11/04/17 06:46 22:26 POC Glucose 273 H 290 H Medical Necessity - Tobacco Use Smoking Status: Former smoker Assessment/Plan 1. Acute diastolic CHF 2/2 skipped dialysis Wednesday - refused again last night. Agreeable to today. Echocardiogram today demonstrated normal LV systolic function, EF 65%, moderate concentric LVH, mild 1+ MVI, RVSP was elevated at 48 mmHg, diastolic dysfunction. CXR shows CHF. Elevated BNP, normal TSH, negative troponin ?4. IV Lasix and xaroxalyn continued as he does still produce urine. 2. Acute Bronchitis - productive cough, continue doxy, robitussin, PO prednisone. Leukocytosis improving. Continue aerosols as needed. 3. ESRD - Dr. Whelan consulted. Pt unwilling to go three times / week. 4. Anemia of chronic disease - trend. Normocytic. 5. Type 2 diabetes mellitus-titrate current insulin therapy. Had a sliding scale today. 6. Hyperlipidemia-statin 7. Chronic hypoxic respiratory failure-at baseline 2 L/min. DVT prophylaxis heparin Discharge planning: PTOT, patient considering hospice at this time. We will also consult the complex care nurse given his complaints this morning. This patient was seen by Jose C Denson PA-C under the supervision of Doctor Higuera. After discussion about his goals of care he will have his CODE STATUS changed to DNR CCA today. See subjective.
--- NOTE | 2017-11-05 16:22 | CHAPLAIN ---
Type of Pastoral Visit _x__ Initial Visit ___ Follow-up Visit ___ On-call Visit ___ General Patient Visit ___ Spiritual Assessment ___ Family Conference ___ Bereavement ___ Rapid Response ___ Code Blue ___ Other (describe below) Pastoral Care Referral From _x__ Patient ___ Family _x__ Nurse ___ Physician _x__ Trimmer Machine ___ Manometer Technician ___ Other (describe below) Sacrament/Intervention _x__ Active listening ___ Anointing ___ Nondenominational ___ Bereavement ___ Communion _x__ Janeth exploration ___ _x__ Life review _x__ Prayer ___ Reconciliation ___ Sacrament of Sick ___ Supportive presence ___ Wedding _x__ Other (describe below) Pastoral Comments call came from on PCU with report patient is considering hospice but has spiritual questions about end of life; met patient; at this time his visitor immediately left the room so the two of you can talk; patient got right to issue about wanting to but concerned about the after life; pt described his belief but wanted to know what this distributed energy systems consultant could tell him about Heaven or Hell and what is the Truth; this became a good dialogue with many questions; pt said that you have given me so much to think about; pt declined prayer support;
[2017-11-05 16:31] LABS: Bedside Glucose 264 mg/dL (70-110)
[2017-11-05 16:41] LABS: Bedside Glucose 371 mg/dL (70-110)
--- NOTE | 2017-11-05 20:55 | DIALYSIS ---
Pt ran 4 hr tx; 3251; 2500 removed; stable/tolerated well. Next tx 11/08/17. [place] removed; hemostasis achieved; DSD applied.
[2017-11-05] MEDS: Aspirin 81 MG TAB.CHEW PO (21:52)
[2017-11-05 22:06] LABS: Bedside Glucose 252 mg/dL (70-110)
[2017-11-06] VITALS (20 sets, daily range): BP systolic 131–195; BP diastolic 64–77; PULSE 67–99; RESP 18–20; TEMP 36.3–37; O2SAT 94–98
[2017-11-06] MEDS: Metoprolol Tartrate 50 MG Tablet PO (03:47)
[2017-11-06] MEDS: hydrALAZINE 20 MG/ML Vial 10 MG IV ×2 (03:48→10:39)
[2017-11-06] MEDS: Heparin Injection (Vial) 5,000 UNIT/ML VIAL 5000 UNIT SC ×3 (04:58→22:43)
[2017-11-06 06:12] LABS: Absolute Lymphocyte Count 0.85 X10^3/ul (0.83-4.51); Absolute Neutrophil Count 14.4 X10^3/uL (2.0-7.7); Basophil# 0.01 X10^3/uL; Basophil% 0.1 % (0-1); Eosinophil# 0.02 X10^3/uL; Eosinophils% 0.1 % (0-5); Hemoglobin 7.8 g/dl (13.0-16.5); Lymphocyte # 0.85 X10^3/ul (4.0); Lymphocyte % 5.3 % (19-41); Mean Corp Hgb Conc 31.2 g/gl (32-36); Mean Corpuscular Hgb 26.4 pg (27.0-32.0); Mean Corpuscular Volume 84.7 fL (80-94); Mean Platelet Vol. 8.6 fl (6.2-12.0); Monocyte# 0.67 X10^3/uL; Monocyte% 4.2 % (0-10); Neutrophil # 14.37 X10^3/uL (2.7-7.7); Neutrophil % 90.1 % (47-70); POSITIVE COUNT NO; POSITIVE DIFFERENTIAL NO; POSITIVE MORPHOLOGY NO; Platelet Count 258 K/mm3 (150-450); RBC Distribution Width CV 14.2 % (11.6-14.6); RBC Distribution Width SD 44.2 fl (35.1-43.9); Red Blood Count 2.95 M/mm3 (4.6-6.2)
[2017-11-06 06:55] LABS: Anion Gap 8 (5-15); BUN 26 mg/dL (7-18); BUN/Creat Ratio 7.3 RATIO (10-20); Chloride 97 mmol/L (98-107); Creatinine, Serum 3.57 mg/dL (0.70-1.30); EST Glomerular Filtration Rate 18 mL/min (>60); Est Glom Filt Rate - Afr Amer 21 mL/min (>60); Estimated Creatinine Clearance 17.61 ml/min; Glucose 297 mg/dL (74-106); Sodium Level 135 mmol/L (136-145)
[2017-11-06 07:05] LABS: Bedside Glucose 319 mg/dL (70-110)
[2017-11-06] MEDS: Doxycycline 100 MG CAPSULE PO ×2 (09:21→22:43)
[2017-11-06] MEDS: predniSONE 20 MG Tablet 40 MG PO (09:21)
[2017-11-06] MEDS: Pantoprazole Sodium 20 MG Tablet PO (09:21)
[2017-11-06] MEDS: Pregabalin 50 MG Capsule PO ×2 (09:21→22:43)
[2017-11-06] MEDS: metOLazone 5 MG Tablet 10 MG PO ×2 (09:21→17:28)
[2017-11-06] MEDS: amLODIPine 10 MG Tablet PO (09:21)
[2017-11-06] MEDS: Collagenase 30gm Tube 1 APPLIC TOPICAL (09:23)
[2017-11-06] MEDS: Furosemide 40 MG/4 ML Vial IV ×2 (09:23→17:29)
--- NOTE | 2017-11-06 09:24 | CASEMGMT ---
Addendum entered by Emilie Medley 11/06/17 10:07: green sheet on chart with instructions. Original Note: SW spoke with RN yesterday who indicated patient is now okay with dialysis and wants to wait to talk to Hospice until he gets his affairs in order. SW noted rn interventional spoke with patient and it looks like he and patient had a good conversation. SW met with patient, introduced self and role at [facility]. Patient confirmed his services with [facility]. He denies need for home PT/OT even though it was recommended by therapy. Patient appeared to be in good spirits today as was evidenced by his making jokes and laughing. At this time SW will defer discussion of Hospice as it appears patient has now had a change of heart. Plan: return home with resumption of [facility] home health services. Emilie PARK
[2017-11-06] MEDS: Glucerna Shake 120 ML LIQUID PO ×3 (09:25→17:28)
[2017-11-06 11:56] LABS: Bedside Glucose 209 mg/dL (70-110)
--- NOTE | 2017-11-06 12:40 | PN_ITS ---
Subjective: Cough improved with robitussin. He continues to be somewhat more SOB than normal. He continues to have a productive cough. No fevers or chills. He overall feels improved since yesterday, he did agree to dialysis yesterday. He states that after having a discussion with his brother he wants to continue to live, and is even willing to start doing dialysis on Wednesdays which he was not doing prior. - Physical Exam General: Alert, Oriented x3, Cooperative HEENT: Atraumatic, PERRLA, EOMI, Normocephalic Neck: Supple, No JVD, Negative Carotid Bruits Lungs: Rales - diffuse mild crackles. Cardiovascular: Regular rate, No murmurs Abdomen: Bowel Sounds Present, Soft, Non Tender Extremities: No edema, Capillary Refill Less than 3 Seconds Skin: No rashes, No breakdown Musculoskeletal: No Tenderness to Palpation of Joints or Extremities Neurological: Cranial nerves II-XII grossly intact Psych/Mental Status: Normal Affect, Appropriate, Alert and oriented to time, place, person, mood and affect Vital Signs Temp Pulse Resp BP Pulse Ox 97.9 F 72 18 162/73 H 97 11/06/17 09:48 11/06/17 11:20 11/06/17 09:48 11/06/17 09:48 11/06/17 11:32 Oxygen Flow Rate (L/min) 2.5 Oxygen Delivery Method Nasal Cannula Weight: 110.9 kg Body Mass Index (BMI) 36.2 Intake and Output for Last 24 Hours 11/04/17 11/05/17 11/06/17 23:59 23:59 23:59 Intake Total 1152 / 1152 Output Total 5000 / 5000 Balance -3848 / -3848 Laboratory Tests Past 24 Hrs 11/06/17 11/06/17 05:50 05:50 WBC 16.0 H RBC 2.95 L Hgb 7.8 L Hct 25.0 L MCV 84.7 MCH 26.4 L MCHC 31.2 L RDW 14.2 RDW Differential 44.2 H Plt Count 258 MPV 8.6 Immature Gran % (Auto) 0.200 Neut % (Auto) 90.1 H Lymph % (Auto) 5.3 L [place] % (Auto) 4.2 Eos % (Auto) 0.1 Baso % (Auto) 0.1 Absolute Neuts (auto) 14.4 H Absolute Lymphs (auto) 0.85 Total Counted Not Reportable Sodium 135 L Potassium 4.0 Chloride 97 L Carbon Dioxide 30.0 Anion Gap 8 BUN 26 H Creatinine 3.57 H Estim Creat Clear Calc 17.61 Est GFR (MDRD) Af Amer 21 L Est GFR (MDRD) Non-Af 18 L BUN/Creatinine Ratio 7.3 L Glucose 297 H Calcium 8.0 L POC Glucose 11/06/17 11/06/17 11/05/17 11:51 06:51 21:46 POC Glucose 209 H 319 H 252 H 11/05/17 11/05/17 16:12 11:41 POC Glucose 371 H 264 H Medical Necessity - Tobacco Use Smoking Status: Former smoker Assessment/Plan 1. Acute diastolic CHF 2/2 skipped dialysis - s/p dialysis last night. Echocardiogram today demonstrated normal LV systolic function, EF 65%, moderate concentric LVH, mild 1+ MVI, RVSP was elevated at 48 mmHg, diastolic dysfunction. CXR shows CHF. Elevated BNP, normal TSH, negative troponin ?4. IV Lasix and xaroxalyn continued as he does still produce urine. 2. Acute Bronchitis - productive cough, continue doxy x 5 days total, robitussin , PO prednisone. Leukocytosis elevated 2/2 prednisone. Continue aerosols as needed. 3. ESRD - Dr. Whelan consulted. Pt now agreeable to dialysis and going to dialysis on Wednesdays. 4. Anemia of chronic disease - trend. Normocytic. Check iron panel. 5. Type 2 diabetes mellitus-continue to titrate current insulin therapy. SSI. 6. Hyperlipidemia-statin 7. Chronic hypoxic respiratory failure-at baseline 2 L/min. 8. HTN - poorly controlled. Added TID hydralazine today. DVT prophylaxis: heparin Discharge planning: PTOT. Pt decided not to go hospice. May need home care. This patient was seen by Jose C Denson PA-C under the supervision of Doctor Higuera.
[2017-11-06 13:01] LABS: Iron Binding Capacity,Total 236 ug/dL (250-450)
[2017-11-06] MEDS: Ipratropium/Albuterol Sulfate 3 ML AMPUL.NEB INHALATION ×2 (13:39→21:00)
[2017-11-06] MEDS: hydrALAZINE 10 MG Tablet PO ×2 (14:24→22:43)
--- NOTE | 2017-11-06 15:19 | PN.RENAL_ITS ---
Subjective: Patient tolerated HD session well yesterday with 5 LUF Breathing is better. - Physical Exam General: Alert, Oriented x3 HEENT: Atraumatic Oral: Moist Mucosa Neck: Supple, No JVD Lungs: Clear to auscultation, Normal air movement Cardiovascular: Regular rate, Regular Rhythm, Normal S1, Normal S2 Abdomen: Bowel Sounds Present, Soft, Non Tender Extremities: No clubbing, No cyanosis, No edema Skin: No rashes Musculoskeletal: No Tenderness to Palpation of Joints or Extremities Lymphatic: No Cervical, Supraclavicular, or Inguinal Adenopathy Neurological: Cranial nerves II-XII grossly intact, Neuro grossly intact Psych/Mental Status: Normal Affect Vital Signs Temp Pulse Resp BP Pulse Ox 98.6 F 80 20 H 131/64 H 94 11/06/17 14:20 11/06/17 14:24 11/06/17 14:20 11/06/17 14:20 11/06/17 14:20 Oxygen Flow Rate (L/min) 2 Oxygen Delivery Method Nasal Cannula Weight: 110.9 kg Body Mass Index (BMI) 36.2 Intake and Output for Last 24 Hours 11/04/17 11/05/17 11/06/17 23:59 23:59 23:59 Intake Total 1152 / 1152 Output Total 5000 / 5000 Balance -3848 / -3848 Laboratory Tests Past 24 Hrs 11/06/17 11/06/17 11/06/17 05:50 05:50 05:50 WBC 16.0 H RBC 2.95 L Hgb 7.8 L Hct 25.0 L MCV 84.7 MCH 26.4 L MCHC 31.2 L RDW 14.2 RDW Differential 44.2 H Plt Count 258 MPV 8.6 Immature Gran % (Auto) 0.200 Neut % (Auto) 90.1 H Lymph % (Auto) 5.3 L [place] % (Auto) 4.2 Eos % (Auto) 0.1 Baso % (Auto) 0.1 Absolute Neuts (auto) 14.4 H Absolute Lymphs (auto) 0.85 Total Counted Not Reportable Sodium 135 L Potassium 4.0 Chloride 97 L Carbon Dioxide 30.0 Anion Gap 8 BUN 26 H Creatinine 3.57 H Estim Creat Clear Calc 17.61 Est GFR (MDRD) Af Amer 21 L Est GFR (MDRD) Non-Af 18 L BUN/Creatinine Ratio 7.3 L Glucose 297 H Calcium 8.0 L TIBC 236 L POC Glucose 11/06/17 11/06/17 11/05/17 11:51 06:51 21:46 POC Glucose 209 H 319 H 252 H 11/05/17 11/05/17 16:12 11:41 POC Glucose 371 H 264 H Medical Necessity - Tobacco Use Smoking Status: Former smoker Assessment/Plan 1- ESRD on MWF ( Patient refuses 3 days weekly HD . He just has HD session on ) Last HD 11/05 with 5L UF No need of HD today HD access LUE AVF with +T and + B next HD session 11/08 2- HTN: BP is better w. continue the same BP medications for now 3- Acute on chronic RF due to CHF Improved with UF Keep O>I Will continue to follow Dominick Whelan MD
[2017-11-06 16:50] LABS: Bedside Glucose 251 mg/dL (70-110)
[2017-11-06] MEDS: guaiFENesin 10 ML UDC (200MG/10ML) PO (20:04)
[2017-11-06] MEDS: Aspirin 81 MG TAB.CHEW PO (22:43)
[2017-11-06 22:56] LABS: Bedside Glucose 368 mg/dL (70-110)
[2017-11-06] MEDS: BENZOCAINE/MENTHOL 1 LOZENGE 2 LOZENGE MUCOUS MEM (23:58)
[2017-11-07] VITALS (11 sets, daily range): BP systolic 142–172; BP diastolic 67–109; PULSE 77–91; RESP 16–20; TEMP 36.3–36.5; O2SAT 97–98
--- NOTE | 2017-11-07 05:55 | RAD_ITS ---
STUDY: X-RAY CHEST REASON FOR EXAM: Male, 77 years old. History of congestive heart failure. TECHNIQUE: Single AP portable view of the chest. COMPARISON: 11/04/2017. FINDINGS: There is improved bilateral infiltrates/edema. There is no demonstrated pleural abnormality. The cardiac silhouette remains enlarged. Normal mediastinum and sarath. Normal visualized pulmonary arteries. There is atherosclerotic calcification of the aortic arch with tortuosity. The thoracic spine is not well-visualized. Normal visualized ribs, clavicles, and shoulders. There is no demonstrated abnormality of the visualized soft tissue structures of the upper abdomen. RAD/Chest PA and Lateral IMPRESSION: Improved bilateral infiltrates/edema. Electronically Signed: Riccardo Louie MD at 10:15 EDT Tel , Service support ,
[2017-11-07] MEDS: hydrALAZINE 10 MG Tablet PO (06:29)
[2017-11-07] MEDS: Heparin Injection (Vial) 5,000 UNIT/ML VIAL 5000 UNIT SC (06:29)
[2017-11-07 07:05] LABS: Bedside Glucose 284 mg/dL (70-110)
[2017-11-07] MEDS: Ipratropium/Albuterol Sulfate 3 ML AMPUL.NEB INHALATION (07:38)
[2017-11-07 08:01] LABS: Absolute Lymphocyte Count 1.06 X10^3/ul (0.83-4.51); Absolute Neutrophil Count 13.7 X10^3/uL (2.0-7.7); Basophil# 0.01 X10^3/uL; Basophil% 0.1 % (0-1); Eosinophil# 0.02 X10^3/uL; Eosinophils% 0.1 % (0-5); Lymphocyte # 1.06 X10^3/ul (4.0); Lymphocyte % 6.8 % (19-41); Mean Corp Hgb Conc 30.8 g/gl (32-36); Mean Corpuscular Hgb 26.3 pg (27.0-32.0); Mean Corpuscular Volume 85.5 fL (80-94); Mean Platelet Vol. 8.7 fl (6.2-12.0); Monocyte# 0.73 X10^3/uL; Monocyte% 4.7 % (0-10); Platelet Count 294 K/mm3 (150-450); RBC Distribution Width CV 14.4 % (11.6-14.6); RBC Distribution Width SD 45.1 fl (35.1-43.9); Red Blood Count 3.04 M/mm3 (4.6-6.2); White Blood Count 15.6 K/mm3 (4.4-11.0)
[2017-11-07 08:03] LABS: POSITIVE COUNT NO; POSITIVE DIFFERENTIAL NO; POSITIVE MORPHOLOGY NO
[2017-11-07 08:22] LABS: ALB/GLOB Ratio 0.8 RATIO (0.9-2.4); AST(SGOT) 11 U/L (15-37); Alanine Aminotransfer ALT/SGPT 15 U/L (16-61); Albumin, Serum 2.9 g/dL (3.2-5.0); Alkaline Phosphatase 105 U/L (45-117); Anion Gap 7 (5-15); BUN 46 mg/dL (7-18); BUN/Creat Ratio 9.7 RATIO (10-20); Chloride 96 mmol/L (98-107); Cholesterol 167 mg/dL (200); Creatinine, Serum 4.73 mg/dL (0.70-1.30); EST Glomerular Filtration Rate 13 mL/min (>60); Est Glom Filt Rate - Afr Amer 15 mL/min (>60); Estimated Creatinine Clearance 13.29 ml/min; Globulin 3.6 g/dL (2.2-4.2); Glucose 264 mg/dL (74-106); Hemoglobin A1c 9.4 % (4.2-6.3); High Density Lipoprotein 39 mg/dL; Magnesium 1.6 mg/dL (1.6-2.6); Phosphorus 3.3 mg/dL (2.5-4.9); Potassium 4.3 mmol/L (3.5-5.1); Protein, Total 6.5 g/dL (6.4-8.2); Sodium Level 132 mmol/L (136-145); Triglycerides 91 mg/dL; Very Low Density Lipoprotein 18 mg/dL (5-40)
[2017-11-07] MEDS: Glucerna Shake 120 ML LIQUID PO ×2 (08:42→11:47)
[2017-11-07 11:06] LABS: Bedside Glucose 325 mg/dL (70-110)
[2017-11-07] MEDS: Doxycycline 100 MG CAPSULE PO (11:40)
[2017-11-07] MEDS: Furosemide 40 MG/4 ML Vial IV (11:40)
[2017-11-07] MEDS: Pregabalin 50 MG Capsule PO (11:40)
[2017-11-07] MEDS: Pantoprazole Sodium 20 MG Tablet PO (11:41)
[2017-11-07] MEDS: metOLazone 5 MG Tablet 10 MG PO (11:41)
[2017-11-07] MEDS: Metoprolol Tartrate 50 MG Tablet PO (11:45)
[2017-11-07] MEDS: amLODIPine 10 MG Tablet PO (11:46)
--- NOTE | 2017-11-07 11:48 | PCM.DC ---
- Discharge Diagnoses Current Active Problems: Current Active and Chronic Problems ESRD (end stage renal disease) on dialysis (Chronic) You will use the following diet at home:: Calorie/Carbohydrate Controlled (specify 1200, 1400, etc) - 1800 lu/day, Cardiac - <2g sodium / day Your food should be the consistency of: Regular Your liquids should be the consistency of: Regular/Thin Discharge Activity: Return to Normal Activity Allergies/Adverse Reactions: Allergies labetalol [Labetalol] Adverse Reaction (Verified 11/06/17 03:39) Other Unknown to pt, denies Medications to take at Discharge Amlodipine [Norvasc] 10 mg PO DAILY 11/04/17 Aspirin [Aspirin, Baby] 81 mg PO QHS 11/04/17 Collagenase [Santyl] 1 applicatio TOPICAL QODAY 11/04/17 Furosemide [Lasix] 80 mg PO BID 11/04/17 Metolazone [Zaroxolyn] 10 mg PO BID 11/04/17 Omeprazole 20 mg PO DAILY 11/04/17 Pregabalin [Lyrica] 50 mg PO BID 11/04/17 Benzonatate [Tessalon Perle] 100 mg PO TID PRN PRN #12 cap 11/07/17 Doxycycline 100 mg PO BID #5 cap 11/07/17 Insulin Aspart [Novolog Flexpen] 18 units SC 0800,1200,1700,2200 flexpen 11/07/17 Prednisone 40 mg PO DAILY #12 tab 11/07/17 hydrALAZINE [Apresoline] 10 mg PO TID #90 tab 11/07/17 The following prescriptions were given: Benzonatate [Tessalon Perle] 100 mg PO TID PRN PRN #12 cap PRN Reason: Cough Doxycycline 100 mg PO BID #5 cap Prednisone 40 mg PO DAILY #12 tab hydrALAZINE [Apresoline] 10 mg PO TID #90 tab Primary Care Physician: Nolan Martinez MD [Primary Care Provider] - Please follow up with your Primary Care Physician in: 1-2 weeks Please Follow Up With: Nephrology - Resume dialysis Wednesday, Wednesday, Wednesday Proposed Discharge Date: 11/07/17
[2017-11-07] MEDS: 0.9% NaCl Peripheral Flush Adult/Peds IV (11:50)
--- NOTE | 2017-11-07 11:53 | PCM.DC.SUM ---
Discharge Date and Diagnosis Date of Admission: 11/04/17 Date of Discharge: 11/07/17 - Primary Discharge Diagnosis Acute on chronic diastolic CHF exacerbation 2/2 missed dialysis Acute bronchitis ESRD-noncompliance with dialysis Chronic hypoxic respiratory failure Poorly controlled hypertension Type 2 diabetes mellitus Anemia of chronic disease Peripheral neuropathy - Secondary Discharge Diagnosis Chronic Problems ESRD (end stage renal disease) on dialysis (Chronic) Diabetic neuropathy (Chronic) Secondary hyperparathyroidism (Chronic) Non-healing wound of lower extremity (Chronic) Peripheral vascular disease (Chronic) Acute on chronic renal failure (Chronic) Hyperlipidemia (Chronic) Hypertension (Chronic) Type 2 diabetes mellitus (Chronic) Cerebral venous sinus thrombosis (Chronic) Questionable history, possible stent in my head CKD (chronic kidney disease) stage 4, GFR 15-29 ml/min (Chronic) Anemia in chronic kidney disease (Chronic) Noncompliance with treatment plan (Chronic) Personality disorder (Chronic) Hospital Course and Treatment Imaging Results: 11/07/17 05:55 Chest PA and Lateral [RAD] AM (NON MEDS) Consults: Tip - nephrology Operations: None Procedures: 2-D Echocardiogram, Dialysis Summary of Care Provided: Physical exam on day of discharge: General: Resting comfortably NAD Psych: A/Ox3 normal affect HEENT: PEARRLA AT NC Neck: Supple NT CV: RRR, no m/t/r/g/h Resp: Somewhat diminished, no adventitious sounds today, no Abd: [id number] Soft NT no guarding or rigidity Ext: DP2+= no edema Skin: W/D normal turgor Lymph/Heme: No active bleeding or adenopathy Neuro: CN2-12 intact Hospital course: The patient is a 77 year old M who presented to the ER complaining of worsening of chronic cough. He was found to be in congestive heart failure with CXR c/w failure, crackles on exam, and elevated BNP, and c/w him missing dialysis the day prior because he refuses to do dialysis three days per week as he does not like it. He had an elevated white count and was felt to also have bronchitis and was started on PO doxy, prednisone, and robitussin. We arranged for him to have dialysis that night however he refused it. He then refused dialysis again the next morning. He stated he did not want to keep having dialysis and we had a long discussion about his prognosis without dialysis and he considered hospice briefly. His brother convinced him to attempt to stay alive to see the end of the 's next season, however he did change his code status to DNR-CCA, no CPR no intubation. He then decided to have dialysis. The next day his condition had improved significantly but he still felt more SOB than baseline. He had a repeat echo showing preserved EF. He was started on hydralazine TID for uncontrolled BP, and his QID insulin was slightly increased while here. He was discharged home to complete a total of 5 days of doxy and prednisone, with tessalon perles, and his new hydralazine dose. Prior to discharge he explicitly stated he was going to skip dialysis tomorrow (Wednesday) because instead he wanted to spend time picking up his new glasses and purchasing a humidifier. He was discharged home to resume home health care services in stable condition and instructed to follow up with dialysis tomorrow. This patient was seen by Jose C Denson PA-C under the supervision of Doctor Higuera. [] Discharge Diet: Low fat/ Low Cholesterol, 1800 Calorie Control Diet, 2000 mg Sodium Diet Discharge Activity: Return to Normal Activity Home Medications: Medications to take at Discharge Amlodipine [Norvasc] 10 mg PO DAILY 11/04/17 Aspirin [Aspirin, Baby] 81 mg PO QHS 11/04/17 Collagenase [Santyl] 1 applicatio TOPICAL QODAY 11/04/17 Furosemide [Lasix] 80 mg PO BID 11/04/17 Metolazone [Zaroxolyn] 10 mg PO BID 11/04/17 Omeprazole 20 mg PO DAILY 11/04/17 Pregabalin [Lyrica] 50 mg PO BID 11/04/17 Benzonatate [Tessalon Perle] 100 mg PO TID PRN PRN #12 cap 11/07/17 Doxycycline 100 mg PO BID #5 cap 11/07/17 Insulin Aspart [Novolog Flexpen] 18 units SC 0800,1200,1700,2200 flexpen 11/07/17 Prednisone 40 mg PO DAILY #12 tab 11/07/17 hydrALAZINE [Apresoline] 10 mg PO TID #90 tab 11/07/17 Following Prescrptions Were Given to Patient: Benzonatate [Tessalon Perle] 100 mg PO TID PRN PRN #12 cap PRN Reason: Cough Doxycycline 100 mg PO BID #5 cap Prednisone 40 mg PO DAILY #12 tab hydrALAZINE [Apresoline] 10 mg PO TID #90 tab Primary Care Physician: Nolan Martinez MD [Primary Care Provider] - Please follow up with your Primary Care Physician in: 1-2 weeks Please Follow Up With: Nephrology - Resume dialysis Wednesday, Wednesday, Wednesday Disposition: Home with Home Health Minutes spent on discharge:: 35 Patient Condition:: Stable Medical Necessity - Tobacco Use Smoking Status: Former smoker Meaningful Use Info Meaningful Use Diagnoses (Choose all that apply): CHF - CHF RAIZA/ARB ordered at discharge?: No Reason RAIZA/ARB not ordered?: Worsening renal disease Documented LVEF (%): 65
--- NOTE | 2017-11-07 13:44 | NURSING ---
Family member here to take patient home. RN attempted to discuss discharge information with family member as patient seemed overwhelmed with discharge teaching. Family member not interested. He interrupted RN and stated to hurry up he needed to leave. Patient did voice understanding of end of teaching.
== END 2017-11-07 13:43 | disposition home or self-care (01) ==
LOC: ED 17:53 → PCU 18:42
PROVIDERS: Physician Assistant; Admitting Provider Internal Medicine; Emergency Provider Emergency Medicine; Family Provider Family Medicine; PCP Family Medicine; Visit Provider Internal Medicine
DX: I13.2 Hypertensive heart and chronic kidney disease with heart failure and with stage 5 chronic kidney disease, or end stage renal disease (principal); J81.1 Chronic pulmonary edema; I50.33 Acute on chronic diastolic (congestive) heart failure; N18.6 End stage renal disease; E11.22 Type 2 diabetes mellitus with diabetic chronic kidney disease; Z99.2 Dependence on renal dialysis; Z91.15 Patient's noncompliance with renal dialysis; J96.11 Chronic respiratory failure with hypoxia; E11.42 Type 2 diabetes mellitus with diabetic polyneuropathy; N25.81 Secondary hyperparathyroidism of renal origin; E11.51 Type 2 diabetes mellitus with diabetic peripheral angiopathy without gangrene; E78.5 Hyperlipidemia, unspecified; D63.1 Anemia in chronic kidney disease; Z99.81 Dependence on supplemental oxygen; Z79.899 Other long term (current) drug therapy; Z79.4 Long term (current) use of insulin; Z87.891 Personal history of nicotine dependence; J20.9 Acute bronchitis, unspecified
CPT/HCPCS: 36415; 71045; 71046; 80048; 80053; 80061; 82962; 83036; 83550; 83735; 83880; 84100; 84443; 84484; 85025; 87804; 90937; 93005; 93306; 94640; 96372; 96374; 96375; 96376; 97116; 97162; 97165; 97530; 97802; 99218; 99285; J0885; J1756; A4216; G0257; G0378; G8987; G8988; G8989; J1940